=== PATIENT | female | born 1975 | race Caucasian/White ===

== ENCOUNTER 2021-08-11 16:38 | Emergency (ER) | payer OTHER ==
[2021-08-11 17:58] LABS: BILIRUBIN NEGATIVE (NEGATIVE); BLOOD 3+ Ery/uL (NEGATIVE); CLARITY HAZY (CLEAR); GLUCOSE (U) NORMAL (NORMAL); LEUKOCYTES TRACE Leu/uL (NEGATIVE); NITRITE NEGATIVE (NEGATIVE); PROTEIN TRACE (LOW) mg/dL (NEGATIVE); SPECIFIC GRAVITY <=1.005 (1.001-1.030); UROBILINOGEN 0.2 mg/dL (0.2-1.0)
[2021-08-11 17:58] LABS: BASOPHIL 0.4 % (0-2); EOSINOPHIL 0.4 % (0-5); HCT 40.4 % (37.0-47.0); HGB 13.9 g/dl (12.5-16.0); LYMPHOCYTE 24.9 % (15-48); MCH 30.3 pg (25.0-31.0); MCHC 34.4 g/dL (32.0-36.0); MCV 88.2 fL (78.0-100.0); MONOCYTE 13.2 % (0-12); MPV 10.9 fL (6.0-9.5); NEUTROPHIL 60.7 % (41-80); NRBC 0; PLT 144 K/uL (150-400); RBC 4.58 M/uL (4.20-5.40); RDW 12.9 % (11.5-14.0); WBC 2.6 K/uL (4.0-10.5)
[2021-08-11 17:59] LABS: COLOR RED (YELLOW)
[2021-08-11 18:15] LABS: BACTERIA TRACE; URINARY RBC TNTC
[2021-08-11 18:22] LABS: ALBUMIN 3.5 g/dL (3.4-5.0); BILIRUBIN - TOTAL 0.3 mg/dL (0.2-1.0); BUN/CREAT RATIO (CALC) 6.1 RATIO; CREATININE 0.82 mg/dL (0.51-0.95); GLOBULIN (CALCULATION) 3.1 g/dL; POTASSIUM 2.6 mmol/L (3.5-5.1); TOTAL PROTEIN 6.6 g/dL (6.4-8.2)
[2021-08-11] MEDS ORDERED: KLOR-CON M2020 MEQ PO (23:00)
== END 2021-08-11 23:15 | disposition home or self-care (01) ==
LOC: FER 16:38
PROVIDERS: Emergency Medicine
DX: U07.1 COVID-19 (principal); E87.6 Hypokalemia; Z88.2 Allergy status to sulfonamides; Z88.5 Allergy status to narcotic agent
CPT/HCPCS: 36415; 71045; 80053; 81001; 84132; 85025; J3480; J7030

== ENCOUNTER → 2022-01-23 | Day surgery (SDC) | payer OTHER ==
[~2022-01-23] VITALS: Ht 165.1 cm; Wt 97.2 kg
[~2022-01-23] MED LIST: COLLAGEN PO; HAIR, SKIN AND1 EACH PO; KLOR-CON M2020 MEQ PO; PRENATAL FORMU1 EACH PO; VITAMIN D31250 MCG PO
[2022-01-23 07:19] LABS: HCG (URINE) SCREEN NEGATIVE (NEGATIVE)
== END | disposition home or self-care (01) ==
LOC: FAS 06:48
PROVIDERS: Surgery
DX: Z12.11 Encounter for screening for malignant neoplasm of colon (principal); K63.5 Polyp of colon; K57.30 Diverticulosis of large intestine without perforation or abscess without bleeding; S46.911A Strain of unspecified muscle, fascia and tendon at shoulder and upper arm level, right arm, initial encounter; X50.3XXA Overexertion from repetitive movements, initial encounter; Z90.49 Acquired absence of other specified parts of digestive tract; Z72.89 Other problems related to lifestyle; Z98.51 Tubal ligation status; Z86.010 Personal history of colon polyps; Z91.040 Latex allergy status; Z91.013 Allergy to seafood; Z72.0 Tobacco use
CPT/HCPCS: 84703; J2250; J2704